=== PATIENT | male | born 1970 | race Caucasian/White ===

== ENCOUNTER 2024-03-09 16:30 | Emergency (ER) | payer OTHER, SELFPAY ==
[2024-03-09 16:33] VITALS: BP 106/76; PULSE 84; TEMP 36.8; O2SAT 97; BMI 38.6
[2024-03-09] MEDS: 0.9 % SODIUM CHLORIDE 1,000 ML 1000 ML IV (17:09)
[2024-03-09 17:11] VITALS: O2SAT 98
[2024-03-09 17:16] LABS: Basophils Percent Auto 0.7 % (0.2-2.0); Eosinophils Absolute Auto 0.2 10^3/uL (0.0-0.7); Eosinophils Percent Auto 3.1 % (0.9-7.0); Hematocrit 41.3 % (42.0-54.0); Hemoglobin 14.2 g/dL (14.0-18.0); Immature Granulocytes Abs Auto 0.01 10^3/uL (0.00-0.03); Immature Granulocytes Pct Auto 0.2 % (0.0-0.5); Lymphocytes Absolute Auto 2.3 10^3/uL (1.2-3.8); Lymphocytes Percent Auto 43.2 % (20.5-60.0); Mean Corpuscular HGB Conc 34.4 g/dL (29.9-35.2); Mean Corpuscular Hemoglobin 30.4 pg (25.9-34.0); Mean Corpuscular Volume 88.4 fL (80.0-94.0); Mean Platelet Volume 8.8 fL (9.5-13.5); Monocytes Absolute Auto 0.4 10^3/uL (0.3-0.8); Monocytes Percent Auto 7.6 % (1.7-12.0); Neutrophils Absolute Auto 2.5 10^3/uL (1.4-6.5); Neutrophils Percent Auto 45.2 % (43.0-75.0); Platelet Count 227 10^3/uL (150-450); Red Blood Count 4.67 10^6/uL (4.70-6.10); Red Cell Distribution Width 12.6 % (11.0-15.0); White Blood Count 5.4 10^3/uL (4.0-11.0)
[2024-03-09 17:29] LABS: Anion Gap 9.6; BUN Creatinine Ratio 15.8; Calcium 8.6 mg/dL (8.5-10.1); Chloride 106 mmol/L (98-107); Estimated GFR (African America >60 (>=60); Estimated GFR (Non-African Ame >60 (>=60); Glucose 104 mg/dL (74-106); Potassium 3.6 mmol/L (3.5-5.1); Sodium 139 mmol/L (136-145)
[2024-03-09 17:42] LABS: Creatine Kinase 435 U/L (39-308)
[2024-03-09 18:33] VITALS: BP 114/60
--- NOTE | 2024-03-09 20:41 | ED.GENADUL1 ---
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 Patient tells me that he was very physically fit and ready to go back to work on Friday, he only worked 2 days. Patient daughter at bedside.Patient has not worked in the last 2 days yesterday or today.Patient's symptoms have improved today.Patient is here today because of what he experienced Friday and .Am not sure why patient did not come in Friday, Friday or Yesterday. Patient says that he is very physically fit, patient is a large man, obese, And does not have many symptoms today. Patient says that he has been drinking water and Gatorade over the last several days for All systems are negative except as noted/marked. All systems reviewed and otherwise negative. Nurses note and vital signs reviewed and patient is not hypoxic. General: The patient appears well and in no apparent distress. Patient is resting comfortably on cart. Patient is not toxic, lethargic, or listless Skin: Warm, dry, no pallor noted. There is no rash noted. No petechiae, purpura. Head: Normocephalic, atraumatic Eye: Normal conjunctiva, no drainage, EOMI. PERRL. Bilateral TM shows no erythema, perforation or bulging. Ears, Nose, Mouth, and Throat: oral mucosa is moist. Nares patent. Mouth without vesicles. Cardiovascular: Regular Rate and Rhythm, no murmur, gallop, rub Respiratory: Patient is in no distress, no accessory muscle use, lungs are clear to auscultation, no wheezing, rales or rhonchi Back: non-tender, no CVA tenderness bilaterally to percussion. No CT LS midline pain GI: Obese, no tenderness to palpation, no masses appreciated. No rebound, guarding, or rigidity noted. No distention Musculoskeletal: Patient has full range of motion of all of the extremities, no motor, sensory, or focal neurological deficits Neurological: A&O x4, normal speech Psychiatric: Cooperative Related Data Allergies Allergy/AdvReac Type Severity Reaction Status Date / Time morphine Allergy Severe Verified 03/09/24 16:39 Opioid HPI Opioid Management Most Recent Opioid Data: No Data to Display Exam Constitutional Vital Signs, click to edit/add: Last Vital Signs Temp 98.3 F 03/09/24 16:33 Pulse 84 03/09/24 16:33 Resp 18 03/09/24 16:33 BP 114/60 03/09/24 18:33 Pulse Ox 98 03/09/24 17:11 O2 Del Method Room Air 03/09/24 17:11 Course Vital Signs Vital signs: Vital Signs Temperature 98.3 F 03/09/24 16:33 Pulse Rate 84 03/09/24 16:33 Respiratory Rate 18 03/09/24 16:33 Blood Pressure 106/76 03/09/24 16:33 Pulse Oximetry 97 03/09/24 16:33 Oxygen Delivery Method Room Air 03/09/24 16:33 Temperature 98.3 F 03/09/24 16:33 Pulse Rate 84 03/09/24 16:33 Respiratory Rate 18 03/09/24 16:33 Blood Pressure 114/60 03/09/24 18:33 Pulse Oximetry 98 03/09/24 17:11 Oxygen Delivery Method Room Air 03/09/24 17:11 Medical Decision Making [facility] Narrative Medical decision making narrative: Patient was given 1 L of IV fluid, IV was established. Lab work was done. Patient has mild rhabdomyolysis, mild dehydration.Patient symptoms were Friday and Friday, but patient was thinking that he had heatstroke or heat exhaustion that lasted until today.Patient wants to go back to work tomorrow morning. Patient can go back with No restrictions at all. Education of mild rhabdomyelosis was done at bedside.Patient will follow-up with PCP. No questions at discharge. Patient was also referred to occupational health since he was claiming this visit is secondary to his exhaustion and heat exposure Friday and Friday. I told the patient this seems to be more medical complaints than truly work-related, but paperwork was filed at patient's request for Lab Data Lab results reviewed: Yes I reviewed the patient's lab results Labs: Lab Results 03/09/24 Range/Units 17:06 WBC 5.4 (4.0-11.0) 10^3/uL RBC 4.67 L (4.70-6.10) 10^6/uL Hgb 14.2 (14.0-18.0) g/dL Hct 41.3 L (42.0-54.0) % MCV 88.4 (80.0-94.0) fL MCH 30.4 (25.9-34.0) pg MCHC 34.4 (29.9-35.2) g/dL RDW 12.6 (11.0-15.0) % Plt Count 227 (150-450) 10^3/uL MPV 8.8 L (9.5-13.5) fL Neut % (Auto) 45.2 (43.0-75.0) % Lymph % (Auto) 43.2 (20.5-60.0) % [place] % (Auto) 7.6 (1.7-12.0) % Eos % (Auto) 3.1 (0.9-7.0) % Baso % (Auto) 0.7 (0.2-2.0) % Neut # (Auto) 2.5 (1.4-6.5) 10^3/uL Lymph # (Auto) 2.3 (1.2-3.8) 10^3/uL [place] # (Auto) 0.4 (0.3-0.8) 10^3/uL Eos # (Auto) 0.2 (0.0-0.7) 10^3/uL Baso # (Auto) 0.0 (0.0-0.1) 10^3/uL Abs Immat Gran (auto) 0.01 (0.00-0.03) 10^3/uL Imm/Tot Granulo (auto) 0.2 (0.0-0.5) % Sodium 139 (136-145) mmol/L Potassium 3.6 (3.5-5.1) mmol/L Chloride 106 (98-107) mmol/L Carbon Dioxide 27.0 (21.0-32.0) mmol/L Anion Gap 9.6 BUN 18.0 (7.0-18.0) mg/dL Creatinine 1.14 (0.70-1.30) mg/dL Est GFR ( Amer) >60 (>=60) Est GFR (Non-Af Amer) >60 (>=60) BUN/Creatinine Ratio 15.8 Glucose 104 (74-106) mg/dL Calcium 8.6 (8.5-10.1) mg/dL Total Creatine Kinase 435 H* (39-308) U/L Discharge Plan Discharge Stand Alone Forms: Portal Instructions Chief Complaint: Weakness Clinical Impression: Weakness, Rhabdomyolysis, Dehydration Patient Disposition: Home, Self-Care Time of Disposition Decision: 18:20 Condition: Fair Print Language: German Instructions: Dehydration (ED), Rhabdomyolysis (ED), Weakness (ED) Additional Instructions: Increase fluids at home, Gatorade, Powerade, or water. Follow-up with occupational health Referrals: [facility] [Outside] - 1 week HANNAH LEON [Primary Care Provider] - 1 week Discharge Date/Time: 03/09/24 18:35
== END 2024-03-09 18:35 | disposition home or self-care (01) ==
PROVIDERS: Emergency Provider Emergency Medicine; PCP Family Medicine
DX: M62.82 Rhabdomyolysis (principal); E86.0 Dehydration; R53.1 Weakness
CPT/HCPCS: 36415; 80048; 82550; 85025; 96360; 99284

== ENCOUNTER 2025-01-31 16:42 | Emergency (ER) | payer SELFPAY ==
[2025-01-31] VITALS (53 sets, daily range): BP systolic 90–142; BP diastolic 67–88; PULSE 69–103; TEMP 36.8; O2SAT 92–100; BMI 37.6
--- NOTE | 2025-01-31 17:08 | ECG_ITS ---
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 Measurements Intervals [place] Rate: 89 P: 58 UT: 146 QRS: 48 QRSD: 80 T: 40 QT: 360 QTc: 406 Interpretive Statements 1100 Sinus rhythm [address] elevation 9130 borderline ECG Compared to ECG 11/18/2020 05:59:57 ST (T wave) deviation now present Electronically Signed On 01-31-2025 17:59:33 EDT by LUIS REYES M.D.
--- NOTE | 2025-01-31 17:09 | ED_ITS ---
HPI - SOB/Dyspnea General Chief Complaint: Shortness of Breath/Dyspnea Stated Complaint: CHEST PAIN, DIFF BREATHING, DIZZINESS Time Seen by Provider: 01/31/25 17:05 Mode of arrival: walk-in History of Present Illness HPI Narrative: 54 year old male presents to the ED for SOB. Onset was Friday01/28/25. It became worse today after work. He does a lot of heavy lifting at work. He developed chest pain at 1600 today which was right after work. He has had a cough. Reports chest discomfort mainly with inspiration and movement. Denies fever, chills, injury, edema, N/V/D. Denies hx known cardiac and pulmonary conditions. Denies recent travel or surgery. He takes Seroquel and Ativan for anxiety and bipolar disorder. Related Data Home Medications ?Medication ?Instructions ?Recorded ?Confirmed lorazepam 1 mg tablet 2 mg PO Q12H 01/31/25 quetiapine 200 mg tablet 200 mg PO DAILY 01/31/2502/20 quetiapine 200 mg tablet (Seroquel) 200 mg PO DAILY 01/31/25 Allergies Allergy/AdvReac Type Severity Reaction Status Date / Time morphine Allergy Severe Verified 03/09/24 16:39 Review of Systems 2 ROS Constitutional Denies: fever, chills or fatigue Ears, nose, mouth, and throat Denies: throat pain or neck pain Cardiovascular Reports: chest pain; Denies: swelling of feet/ankles or lightheadedness Respiratory Reports: shortness of breath and cough Gastrointestinal Denies: abdominal pain, nausea, vomiting or diarrhea Musculoskeletal Denies: back pain or neck pain Integumentary/Breast Denies: rash Neurological Reports: headache; Denies: numbness in extremities, weakness in extremities or dizziness PFSH PFSH Social History Little interest or pleasure in doing things: not at all Feeling down, depressed, or hopeless: not at all Exam Constitutional Vital Signs, click to edit/add: Last Vital Signs Temp 98.2 F 01/31/25 16:51 Pulse 76 01/31/25 20:40 Resp 14 01/31/25 20:40 BP 126/87 01/31/25 19:54 Pulse Ox 94 L 01/31/25 20:40 O2 Del Method Room Air 01/31/25 16:51 Common normals: no apparent distress and oriented x3 General appearance: cooperative HENMT Common normals: external ears normal and moist oral mucous membranes Eye Common normals: conjunctivae normal and no scleral icterus Neck & C-Spine Common normals: supple Chest Chest: symmetrical chest wall rise and tenderness Respiratory Common normals: normal respiratory effort and clear to auscultation bilaterally Effort & inspection: able to speak in complete sentences and symmetric chest movement Cardio Common normals: regular rate and regular rhythm Neuro Common normals: oriented x3, moves all extremities and no focal motor deficits Sensorium/orientation: awake and alert Speech: speech normal Course Vital Signs Vital signs: Vital Signs Temperature 98.2 F 01/31/25 16:51 Pulse Rate 103 H 01/31/25 16:51 Respiratory Rate 22 H 01/31/25 16:51 Blood Pressure 90/68 01/31/25 16:51 Pulse Oximetry 94 L 01/31/25 16:51 Oxygen Delivery Method Room Air 01/31/25 16:51 Temperature 98.2 F 01/31/25 16:51 Pulse Rate 76 01/31/25 20:40 Respiratory Rate 14 01/31/25 20:40 Blood Pressure 126/87 01/31/25 19:54 Pulse Oximetry 94 L 01/31/25 20:40 Oxygen Delivery Method Room Air 01/31/25 16:51 MDM - SOB/Dyspnea MDM Narrative Medical decision making narrative: The patient reported his chest pain was intermittent; he declined medication for pain here. Initial troponin was 314.7, BNP 2,804. The patient was given aspirin. There was minimal ST elevation in lead V3 on his EKG. Findings were discussed with the patient. He is in agreement with transfer to [facility] for evaluation by cardiology. I spoke with Dr. Hernandez for cardiology at [facility]. He recommended a Heparin drop for NSTEMI and a CT scan to rule out PE. He also recommended nitro paste 1/2 inch and Lopressor 2.5 mg IV x3 doses. The requested we speak with the hospitalist at [facility] and recommended an ICU bed. CT scan of the chest showed bilateral acute pulmonary emboli with no heart strain. The heparin bolus and drip dosing were updated. I spoke with Dr. Yusuf, hospitalist at [facility], who accepted the patient for transfer on behalf of Dr. Cortez. Differential Diagnosis Differential diagnosis: Likely congestive heart failure, community acquired pneumonia, pulmonary embolism and other (STEMI, NSTEMI) Medical Records Attestation: I reviewed the patient's medical records. Lab Data Attestation: I reviewed the patient's lab results. Labs: Lab Results 01/31/25 01/31/25 Range/Units 17:00 19:05 WBC 9.4 (4.0-11.0) 10^3/uL RBC 4.78 (4.70-6.10) 10^6/uL Hgb 14.7 (14.0-18.0) g/dL Hct 41.1 L (42.0-54.0) % MCV 86.0 (80.0-94.0) fL MCH 30.8 (25.9-34.0) pg MCHC 35.8 H (29.9-35.2) g/dL RDW 12.6 (11.0-15.0) % Plt Count 166 (150-450) 10^3/uL MPV 9.7 (9.5-13.5) fL Neut % (Auto) 61.2 (43.0-75.0) % Lymph % (Auto) 27.9 (20.5-60.0) % [place] % (Auto) 7.6 (1.7-12.0) % Eos % (Auto) 2.5 (0.9-7.0) % Baso % (Auto) 0.6 (0.2-2.0) % Neut # (Auto) 5.7 (1.4-6.5) 10^3/uL Lymph # (Auto) 2.6 (1.2-3.8) 10^3/uL [place] # (Auto) 0.7 (0.3-0.8) 10^3/uL Eos # (Auto) 0.2 (0.0-0.7) 10^3/uL Baso # (Auto) 0.1 (0.0-0.1) 10^3/uL Abs Immat Gran (auto) 0.02 (0.00-0.03) 10^3/uL Imm/Tot Granulo (auto) 0.2 (0.0-0.5) % PT 11.3 (9.0-11.6) sec INR 1.07 APTT 25.8 (22.3-36.2) sec Sodium 139 (136-145) mmol/L Potassium 3.5 (3.5-5.1) mmol/L Chloride 104 (98-107) mmol/L Carbon Dioxide 23.5 (21.0-32.0) mmol/L Anion Gap 15.0 BUN 13.0 (7.0-18.0) mg/dL Creatinine 1.47 H (0.70-1.30) mg/dL Est GFR ( Amer) >60 (>=60 mL/min/1.73m^2) Est GFR (Non-Af Amer) 50 L (>=60 mL/min/1.73m^2) BUN/Creatinine Ratio 8.8 Glucose 83 (74-106) mg/dL Calcium 9.4 (8.5-10.1) mg/dL Total Bilirubin 0.9 (0.2-1.0) mg/dL AST 25 (15-37) U/L ALT 26 (16-63) U/L Alkaline Phosphatase 94 (46-116) U/L Troponin I High Sens 314.7 H* 269.9 H* (4.0-76.1) pg/mL NT-Pro-B Natriuret Pep 2804.0 H* (<=900.0) pg/mL Total Protein 7.0 (6.4-8.2) g/dL Albumin 3.9 (3.4-5.0) g/dL Globulin 3.1 g/dL Albumin/Globulin Ratio 1.3 Imaging Data Chest x-ray: Attestation: I have reviewed the pertinent imaging results. Radiologist's impression: No acute cardiopulmonary process. CT scan - chest: Attestation: I have reviewed the pertinent imaging results. Radiologist's impression: Impression: Bilateral acute pulmonary emboli. No evidence for right heart strain. -Filling defects within the distal right lobar, right upper and lower segmental arteries compared with acute emboli. Additional filling defects within the left upper and left lower segmental arteries also compatible with acute emboli. ECG Data Attestation: ?I have reviewed the pertinent ECG results. (EKG was reviewed by the attending physician. It showed sinus rhythm at a rate of 89. No STEMI.) Interpretation: Measurements Intervals [place] Rate: 89 P: 58 DE: 146 QRS: 48 QRSD: 80 T: 40 QT: 360 QTc: 406 Interpretive Statements 1100 Sinus rhythm [address] elevation 9130 borderline ECG No previous ECG available for comparison REPEAT: Measurements Intervals [place] Rate: 68 P: 46 DE: 158 QRS: 52 QRSD: 76 T: 51 QT: 368 QTc: 385 Interpretive Statements 1100 Sinus rhythm [address] elevation 9130 borderline ECG No previous ECG available for comparison Critical Care Time Critical Care Time Critical Care Time: Yes Total Critical Care Time: 40 Attestation: Due to the high probability of sudden and clinically significant deterioration in the patient's condition he/she required the highest level of my preparedness to intervene urgently. I provided critical care time including documentation time, medication orders and management, reevaluation, vital sign assessment, ordering and reviewing of lab tests, ordering and reviewing of x-ray studies, and admission orders. Aggregate critical care time is 40 minutes including only time during which I was engaged in work directly related to his/her care and did not including time spent treating other patients simultaneously. Discharge Plan Discharge Chief Complaint: Shortness of Breath/Dyspnea Clinical Impression: Non-ST elevation (NSTEMI) myocardial infarction, Elevated brain natriuretic peptide (BNP) level, Chest pain, SOB (shortness of breath) Prescriptions / Home Meds: No Action lorazepam 1 mg tablet 2 mg PO Q12H quetiapine 200 mg tablet 200 mg PO DAILY quetiapine [Seroquel] 200 mg tablet 200 mg PO DAILY Print Language: Urdu Referrals: HANNAH LEON [Primary Care Provider, Family Practice] - 1 week
[2025-01-31] MEDS: METHYLPREDNISOLONE SOD SUCC PF 125 MG/2 ML VIAL IVP (17:23)
--- NOTE | 2025-01-31 17:30 | PC.NURSE ---
Pt presents to ER for general malaise Pt states he has a physical job and recently started experiencing shortness of breath and chest pain with exertion Pt states he has not had much of an appetite over the last few days Pt is short with his words and does not describe in detail Pt states at this time he has no complaints - that he only came because his daughter made him Pt is pale in color and overall just does not appear to be well Pt denies needs or questions at this time
[2025-01-31 18:16] LABS: Basophils Absolute Auto 0.1 10^3/uL (0.0-0.1); Basophils Percent Auto 0.6 % (0.2-2.0); Eosinophils Absolute Auto 0.2 10^3/uL (0.0-0.7); Eosinophils Percent Auto 2.5 % (0.9-7.0); Hematocrit 41.1 % (42.0-54.0); Hemoglobin 14.7 g/dL (14.0-18.0); Immature Granulocytes Abs Auto 0.02 10^3/uL (0.00-0.03); Immature Granulocytes Pct Auto 0.2 % (0.0-0.5); Lymphocytes Absolute Auto 2.6 10^3/uL (1.2-3.8); Lymphocytes Percent Auto 27.9 % (20.5-60.0); Mean Corpuscular HGB Conc 35.8 g/dL (29.9-35.2); Mean Corpuscular Hemoglobin 30.8 pg (25.9-34.0); Mean Platelet Volume 9.7 fL (9.5-13.5); Monocytes Absolute Auto 0.7 10^3/uL (0.3-0.8); Monocytes Percent Auto 7.6 % (1.7-12.0); Neutrophils Absolute Auto 5.7 10^3/uL (1.4-6.5); Neutrophils Percent Auto 61.2 % (43.0-75.0); Platelet Count 166 10^3/uL (150-450); Red Blood Count 4.78 10^6/uL (4.70-6.10); Red Cell Distribution Width 12.6 % (11.0-15.0); White Blood Count 9.4 10^3/uL (4.0-11.0)
[2025-01-31 18:37] LABS: Alanine Aminotransferase 26 U/L (16-63); Albumin Globulin Ratio 1.3; Albumin Level 3.9 g/dL (3.4-5.0); Alkaline Phosphatase 94 U/L (46-116); Aspartate Amino Transferase 25 U/L (15-37); BUN Creatinine Ratio 8.8; Bilirubin Total 0.9 mg/dL (0.2-1.0); Calcium 9.4 mg/dL (8.5-10.1); Carbon Dioxide 23.5 mmol/L (21.0-32.0); Chloride 104 mmol/L (98-107); Estimated GFR (African America >60 (>=60 mL/min/1.73m^2); Estimated GFR (Non-African Ame 50 (>=60 mL/min/1.73m^2); Globulin 3.1 g/dL; Glucose 83 mg/dL (74-106); Potassium 3.5 mmol/L (3.5-5.1); Sodium 139 mmol/L (136-145)
[2025-01-31 18:39] LABS: Troponin I High Sensitivity 314.7 pg/mL (4.0-76.1)
--- NOTE | 2025-01-31 18:39 | ECG_ITS ---
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
[2025-01-31] MEDS: ASPIRIN 81 MG TAB.CHEW 324 MG PO (19:00)
[2025-01-31 19:23] LABS: INR 1.07; Partial Thromboplastin Time 25.8 sec (22.3-36.2); Prothrombin Time 11.3 sec (9.0-11.6)
[2025-01-31] MEDS: METOPROLOL TARTRATE 5 MG/5 ML VIAL 2.5 MG IVP (19:29)
[2025-01-31 19:38] LABS: Troponin I High Sensitivity 269.9 pg/mL (4.0-76.1)
[2025-01-31] MEDS: HEPARIN SODIUM,PORCINE/D5W 25,000 UNIT/500 ML IV.SOLN 20 UNIT IV (20:00)
[2025-01-31] MEDS: HEPARIN SODIUM (PORCINE) 5,000 UNIT/ML VIAL 4000 UNIT IV ×2 (20:02→20:36)
--- NOTE | 2025-01-31 20:09 | PC.NURSE ---
Pt still has no chest pain at this time however he states that with exertion to and from CT table he felt very short of breath Pt was started on Heparin and given a warm blanket Pt aware of transfer plan, waiting telesales professional from [facility] Doctor at this time
[2025-01-31] MEDS: HEPARIN SODIUM,PORCINE/D5W 25,000 UNIT/500 ML IV.SOLN 30 UNIT IV (20:36)
== END 2025-01-31 23:53 | disposition short-term general hospital (02) ==
PROVIDERS: Nurse Practitioner Family; Emergency Provider Student in an Organized Health Care Education/Training Program; PCP Family Medicine
DX: I21.4 Non-ST elevation (NSTEMI) myocardial infarction (principal); I26.99 Other pulmonary embolism without acute cor pulmonale; R07.9 Chest pain, unspecified; R06.02 Shortness of breath; R79.89 Other specified abnormal findings of blood chemistry; F41.9 Anxiety disorder, unspecified; F31.9 Bipolar disorder, unspecified; Z79.899 Other long term (current) drug therapy
CPT/HCPCS: 36415; 71045; 71275; 80053; 83880; 84484; 85025; 85610; 85730; 93005; 96365; 96366; 96375; 96376; 99285; J1644; J2919; Q9967